=== PATIENT | male | born 1955 | race Caucasian/White ===

== ENCOUNTER 2018-07-30 03:34 | Emergency (ER) | payer BC ==
--- NOTE | 2018-07-30 04:18 | Emergency Department Record ---
History of Present Illness - General Chief complaint: Eye Problem Stated complaint: VISUAL DISTURBANCES IN R EYE Time Seen by Provider: 07/30/18 04:02 Source: Patient Mode of Arrival: Ambulatory Limitations: No limitations - History of Present Illness Initial comments: 24hrs ago pt had a sharp stabbing pain above his right eye and had a headache for a few hours that went away. he then developed flashing moving lights in his r eye and then developed a black wavy c shaped line in his r eye. he has a distant hx of optic migraines but states this is totally different MD chief complaint: Vision change Onset/Timin -: Days(s) Onset Description: Sudden Location: Right eye Place: Home If Injury: None Eye Symptoms: Other Severity: Moderate If Pain, Quality: Aching Consistency: Constant Associated Symptoms: Headache Treatments Prior to Arrival: None - Related Data Visual acuity (L) = 20/: 20 Visual acuity (R) = 20/: 25 With correction: No Patient Tetanus UTD (within 5 yrs): No Home Medications Medication Instructions Recorded Confirmed Last Taken Aspirin [Aspir-Low] 81 mg PO DAILY 07/30/18 07/30/18 Unknown Flaxseed Oil [Flax Seed Oil] 1,000 mg PO DAILY 07/30/18 07/30/18 Unknown Magnesium Oxide [Magnesium] 400 mg PO DAILY 07/30/18 07/30/18 Unknown [place]-3 Fatty Acids/Fish Oil [Fish 1 each PO DAILY 07/30/18 07/30/18 Unknown Oil 1,000 mg Capsule] Ubidecarenone [Co Q-10] 10 mg PO DAILY 07/30/18 07/30/18 Unknown Allergies Allergy/AdvReac Type Severity Reaction Status Date / Time No Known Drug Allergies Allergy Verified 07/30/18 03:44 Travel Screening - Travel/Exposure Within Last 30 Days Have you traveled within the last 30 days?: No Review of Systems Reviewed: No additional complaints except as noted below Constitutional: Reports: As per HPI. Denies: Chills, Fever, Malaise, Night sweats, Weakness, Weight change Eyes: Reports: As per HPI. Denies: Eye discharge, Eye pain, Photophobia, Vision change ENT: Reports: As per HPI. Denies: Congestion, Dental pain, Ear pain, Epistaxis , Hearing loss, Throat pain Respiratory: Reports: As per HPI. Denies: Cough, Dyspnea, Hemoptysis, Stridor, Wheezes Cardiovascular: Reports: As per HPI. Denies: Arrhythmia, Chest pain, Dyspnea on exertion, Edema, Murmurs, Orthopnea, Palpitations, Paroxysmal nocturnal dyspnea, Rheumatic Fever, Syncope Endocrine: Reports: As per HPI. Denies: Fatigue, Heat or cold intolerance, Polydipsia, Polyuria Gastrointestinal: Reports: As per HPI. Denies: Abdominal pain, Constipation, Diarrhea, Hematemesis, Hematochezia, Melena, Nausea, Vomiting Genitourinary: Reports: As per HPI. Denies: Dysuria, Frequency, Hematuria, Incontinence, Retention, Testicular pain, Testicular mass, Urgency Musculoskeletal: Reports: As per HPI. Denies: Arthralgia, Back pain, Gout, Joint swelling, Myalgia, Neck pain Skin: Reports: As per HPI. Denies: Bruising, Change in color, Change in hair/ nails, Lesions, Pruritus, Rash Neurological: Reports: As per HPI. Denies: Abnormal gait, Confusion, Headache, Numbness, Paresthesias, Seizure, Tingling, Tremors, Vertigo, Weakness Psychiatric: Reports: As per HPI. Denies: Anxiety, Auditory hallucinations, Depression, Homicidal thoughts, Suicidal thoughts, Visual hallucinations Hematological/Lymphatic: Reports: As per HPI. Denies: Anemia, Blood Clots, Easy bleeding, Easy bruising, Swollen glands Past Medical History - SOCIAL HISTORY Smoking Status: Never smoker Alcohol Use: None Drug Use: None - RESPIRATORY Hx Respiratory Disorders: No - CARDIOVASCULAR Hx Cardio Disorders: No - NEURO Hx Neuro Disorders: Yes Hx Headaches: Yes (Optic Migraines) - GI Hx GI Disorders: No - Hx Genitourinary Disorders: No - ENDOCRINE Hx Endocrine Disorders: No - MUSCULOSKELETAL Hx Musculoskeletal Disorders: No - PSYCH Hx Psych Problems: No - HEMATOLOGY/ONCOLOGY Hx Hematology/Oncology Disorders: No Family Medical History Any Significant Family History?: Yes Hx Cancer: Mother Hx Diabetes: Father Hx Heart Disease: Father, Mother Physical Exam - General General Appearance: Alert, Oriented x3, Cooperative, Mild distress - Head Head exam: Normal inspection - Eye Eye exam: Normal appearance, PERRL, EOMI Pupils: Normal accommodation With correction: No - ENT ENT exam: Normal exam, Mucous membranes moist, Normal external ear exam, Normal orophraynx Ear exam: Normal external inspection. negative: External canal tenderness Nasal Exam: Normal inspection. negative: Discharge, Sinus tenderness Mouth exam: Normal external inspection, Tongue normal Teeth exam: Normal inspection. negative: Dental caries Throat exam: Normal inspection. negative: Tonsillar erythema, Tonsillar exudate - Neck Neck exam: Normal inspection, Full ROM. negative: Tenderness - Respiratory Respiratory exam: Normal lung sounds bilaterally. negative: Respiratory distress - Cardiovascular Cardiovascular Exam: Regular rate, Normal rhythm, Normal heart sounds - GI/Abdominal GI/Abdominal exam: Soft, Normal bowel sounds. negative: Tenderness - Rectal Rectal exam: Deferred - exam: Deferred - Extremities Extremities exam: Normal inspection, Full ROM, Normal capillary refill. negative: Tenderness - Back Back exam: Reports: Normal inspection, Full ROM. Denies: Muscle spasm, Rash noted, Tenderness - Neurological Neurological exam: Alert, CN II-XII intact, Normal gait, Oriented X3 - Psychiatric Psychiatric exam: Normal affect, Normal mood - Skin Skin exam: Dry, Intact, Normal color, Warm Course Vital Signs 07/30/18 03:41 Temperature 97.8 F Pulse Rate 75 Respiratory 16 Rate Blood Pressure 146/113 Pulse Ox 98 Disposition Disposition: Transfer Clinical Impression: Subdural hemorrhage Disposition: [facility] Transfer Transfer To[facility] Reason For Transfer: needs neurosurgeon Accepting Physician: orsa brady Time Discussed w/Accepting Physician: 05:30 Forms: Patient Portal Access Quality - Quality Measures Quality Measures: N/A - Blood Pressure Screening Does Patient Have Any of the Following: No Blood Pressure Classification: Hypertensive Reading Systolic Measurement: 146 Diastolic Measurement: 113 Screening for High Blood Pressure: < First Hypertensive BP, F/U Documented > [ [id number]] First Hypertensive Follow-up Interventions: Follow-up with rescreen GT 1 day and LT 4 weeks.
--- NOTE | 2018-08-01 07:51 | CT SCAN REPORT ---
EXAM: CT SCAN OF THE BRAIN WITHOUT CONTRAST HISTORY: RIGHT SIDED HEADACHE. VISUAL DISTURBANCES WITHIN THE RIGHT EYE TODAY. TECHNIQUE: Standard CT imaging of the brain was performed without contrast. Comparison: None. FINDINGS: There is a mixed attenuation subdural hematoma within the left frontal parietal region. This is composed of near CSF density fluid as well as hyperdense fluid dependently. The appearance suggests an acute and chronic subdural hematoma. This measures up to 8 mm in thickness. There is mild effacement/mass effect on the adjacent cortical sulci. There is very slight midline shift to the right. This measures approximately 3 mm. There are no other abnormal extraaxial fluid collections. The brain parenchyma appears normal. There is no intraaxial hemorrhage, mass, or mass effect. The skull is intact. The orbits and mastoids are normal. There is moderate mucosal thickening within the ethmoid and maxillary sinuses. A superimposed air fluid level is present within the right maxillary sinus consistent with sinusitis. IMPRESSION: 1. 8 MM ACUTE ON CHRONIC LEFT FRONTAL PARIETAL SUBDURAL HEMATOMA WITH MILD ASSOCIATED MASS EFFECT. 2. ETHMOID AND MAXILLARY SINUSITIS. JOB NUMBER: [id number] [facility]
== END 2018-07-30 06:20 | disposition short-term general hospital (02) ==
LOC: ER 03:34
DX: I62.01 Nontraumatic acute subdural hemorrhage (principal)
CPT/HCPCS: 70450; 99285